=== PATIENT | female | born 1990 | race Caucasian/White ===

== ENCOUNTER → 2018-03-22 | Outpatient (CLI) | payer SELFPAY ==
[2018-03-22 21:26] LABS: APPEARANCE,URINE CLOUDY; BILIRUBIN,URINE NEGATIVE (NEGATIVE); COLOR,URINE YELLOW; GLUCOSE, URINE NEGATIVE (NEGATIVE); KETONES,URINE NEGATIVE (NEGATIVE); LEUKOCYTE ESTERASE,URINE SMALL (NEGATIVE); NITRITE,URINE NEGATIVE (NEGATIVE); PROTEIN,URINE NEGATIVE (NEGATIVE)
[2018-03-22 21:39] LABS: URINE AMPHETAMINES SCREEN NEGATIVE; URINE BARBITURATES SCREEN NEGATIVE; URINE BENZODIAZEPINES SCREEN NEGATIVE; URINE COCAINE SCREEN NEGATIVE; URINE MARIJUANA (THC) SCREEN NEGATIVE; URINE METHADONE SCREEN NEGATIVE; URINE PHENCYCLIDINE SCREEN NEGATIVE
[2018-03-22 22:12] LABS: ABSOLUTE BASOPHILS # (AUTO) 0.1 10^3/uL (0.0-0.2); ABSOLUTE EOSINOPHILS # (AUTO) 0.2 10^3/uL (0.0-0.6); ABSOLUTE LYMPHOCYTES (AUTO) 2.1 10^3/uL (0.5-4.7); ABSOLUTE MONOCYTES (AUTO) 0.7 10^3/uL (0.1-1.4); ABSOLUTE NEUT (AUTO) 6.9 10^3/uL (1.7-8.2); BASOPHILS % (AUTO) 0.6 % (0-2); EOSINOPHILS % (AUTO) 1.5 % (0-6); HEMATOCRIT 33.6 % (36.0-47.0); HEMOGLOBIN 11.4 g/dL (12.0-15.5); MEAN CORPUSCULAR HEMOGLOBIN 28.1 pg (27.0-33.4); MEAN CORPUSCULAR HGB CONC 33.8 g/dL (32.0-36.0); MEAN CORPUSCULAR VOLUME 83 fl (80-97); MONOCYTES % (AUTO) 6.8 % (3-13); PLATELET COUNT 287 10^3/uL (150-450); RED BLOOD COUNT 4.05 10^6/uL (3.72-5.28); RED CELL DISTRIBUTION WIDTH 13.1 % (11.5-14.0); SEGMENTED NEUTROPHILS % (AUTO) 70.1 % (42-78); TOTAL CELLS COUNTED % (AUTO) 100 %; WHITE BLOOD COUNT 9.9 10^3/uL (4.0-10.5)
--- NOTE | 2018-03-22 22:56 | RADIOLOGY REPORT (SQ) ---
ULTRASOUND OF THE PELVIS: OB Ultrasound Greater than 14 weeks CLINICAL HISTORY: 27-year-old female with abdominal pain who is with unknown dates. COMPARISON: None. TECHNIQUE: Multiple sonographic images are performed of the pelvis using grayscale and color Doppler with transabdominal probe.. FINDINGS: heart rate: heart rate equals 135 bpm. stomach is visualized. Kidneys are not well-visualized. The portions of the spine included in the field of view appear within normal although dilation is limited due to motion artifact and lie. Abdominal circumference equals 24.0 cm, 28 weeks three days. Femur length equals 5.6 cm, 29 weeks four days. Head circumference equals 27.4 cm, 30 weeks zero days. Three-vessel cord is demonstrated. The first amniotic fluid index equal 3.1 cm. The second amniotic fluid index 3.1 cm The third amniotic fluid index was 2.3 cm. The fourth amniotic fluid index equals 2.2 cm. Total amniotic fluid index equals 10.7 cm. The placenta is seen in an anterior location. IMPRESSION: 1. Viable intrauterine with estimated gestational age of 29 weeks six days. 2. Estimated date of delivery is 06/01/2018 by ultrasound. 3. Amniotic fluid index equal to 10.7 cm.
[2018-03-22 23:12] LABS: RUBELLA INTERPRETATION POSITIVE
[2018-03-23 00:54] LABS: CHLAM PCR NOT DETECTED (NOT DETECT); GON PCR NOT DETECTED (NOT DETECT)
[2018-03-24 11:40] LABS: HEPATITIS C VIRUS AB <0.1 s/co ratio (0.0-0.9)
[2018-03-24 13:56] LABS: HEPATITS B SURFACE ANTIGEN Negative (Negative)
== END ==
LOC: LC 20:39
PROVIDERS: ATTEND Student in an Organized Health Care Education/Training Program
PROC: 4A1HXCZ Monitoring of Products of Conception, Cardiac Rate, External Approach (ICD-10-PCS; principal; 2018-03-22)
DX: O99.613 Diseases of the digestive system complicating pregnancy, third trimester (principal); K21.9 Gastro-esophageal reflux disease without esophagitis; O09.33 Supervision of pregnancy with insufficient antenatal care, third trimester; O26.893 Other specified pregnancy related conditions, third trimester; R10.9 Unspecified abdominal pain; Z3A.29 29 weeks gestation of pregnancy
CPT/HCPCS: 36415; 76805; 80307; 81001; 84443; 85025; 86592; 86701; 86762; 86803; 86804; 86850; 86900; 86901; 87086; 87340; 87491; 87591; 93976

== ENCOUNTER 2018-06-06 23:18 | Inpatient (IN) | payer MEDICAID ==
[2018-06-07 00:17] LABS: APPEARANCE,URINE SLIGHTLY-CLOUDY; BILIRUBIN,URINE NEGATIVE (NEGATIVE); COLOR,URINE YELLOW; GLUCOSE, URINE NEGATIVE (NEGATIVE); KETONES,URINE NEGATIVE (NEGATIVE); LEUKOCYTE ESTERASE,URINE LARGE (NEGATIVE); NITRITE,URINE NEGATIVE (NEGATIVE); PROTEIN,URINE NEGATIVE (NEGATIVE); URINE SPECIFIC GRAVITY 1.015; UROBILINOGEN,URINE NEGATIVE mg/dL (<2.0)
[2018-06-07 00:22] LABS: ABSOLUTE EOSINOPHILS # (AUTO) 0.1 10^3/uL (0.0-0.6); ABSOLUTE MONOCYTES (AUTO) 0.9 10^3/uL (0.1-1.4); ABSOLUTE NEUT (AUTO) 9.7 10^3/uL (1.7-8.2); BASOPHILS % (AUTO) 0.4 % (0-2); EOSINOPHILS % (AUTO) 0.8 % (0-6); HEMATOCRIT 34.8 % (36.0-47.0); HEMOGLOBIN 11.7 g/dL (12.0-15.5); LYMPHOCYTES % (AUTO) 15.5 % (13-45); MEAN CORPUSCULAR HEMOGLOBIN 27.2 pg (27.0-33.4); MEAN CORPUSCULAR HGB CONC 33.5 g/dL (32.0-36.0); MEAN CORPUSCULAR VOLUME 81 fl (80-97); PLATELET COUNT 301 10^3/uL (150-450); RED BLOOD COUNT 4.28 10^6/uL (3.72-5.28); RED CELL DISTRIBUTION WIDTH 14.3 % (11.5-14.0); SEGMENTED NEUTROPHILS % (AUTO) 76.3 % (42-78); TOTAL CELLS COUNTED % (AUTO) 100 %; WHITE BLOOD COUNT 12.7 10^3/uL (4.0-10.5)
[2018-06-07] MEDS ORDERED: OXYTOCIN 10 UNIT/ML VIAL ONE (00:24)
[2018-06-07] MEDS ORDERED: MISOPROSTOL 0.2 MG TABLET ONE (00:24)
[2018-06-07] MEDS ORDERED: OXYTOCIN/NORMAL SALINE 20 UNIT/1,000 ML RTUINJ ONE (00:24)
[2018-06-07] MEDS ORDERED: LIDOCAINE 1% INJ-PF (10 MG/ML) 30 ML SDV ONE (00:24)
[2018-06-07] MEDS ORDERED: DINOPROSTONE 10 MG VAGINAL INSERT.SR ONE (00:25)
[2018-06-07 00:35] LABS: URINE AMPHETAMINES SCREEN NEGATIVE; URINE BARBITURATES SCREEN NEGATIVE; URINE BENZODIAZEPINES SCREEN NEGATIVE; URINE COCAINE SCREEN NEGATIVE; URINE MARIJUANA (THC) SCREEN NEGATIVE; URINE METHADONE SCREEN NEGATIVE; URINE PHENCYCLIDINE SCREEN NEGATIVE
[2018-06-07] MEDS ORDERED: ZOLPIDEM TARTRATE 5 MG TABLET ONE (03:14)
[2018-06-07] MEDS ORDERED: ZOLPIDEM TARTRATE 5 MG TABLET PO ONE (03:30)
[2018-06-07] MEDS ORDERED: ACETAMINOPHEN 325 MG TABLET ONE (05:58)
[2018-06-07] MEDS ORDERED: ACETAMINOPHEN 325 MG TABLET PO ONE (06:05)
--- NOTE | 2018-06-07 06:45 | Admission Physical ---
Datetime Report Generated by CPN: 06/07/2018 06:44 CURRENT ADMISSION Chief Complaint: Scheduled Induction of Labor Indication for Induction: Postterm Admit Impression : Postterm, Intrauterine Admit Plan: Initiate Labor Protocol ALLERGIES Medication Allergies: No Medication Allergies: No Known Allergies (06/07/2018) Latex: No Latex Allergies Food Allergies: N/A Environmental Allergies: N/A OBSTETRICAL HISTORY EDC: 06/06/2018 00:00 : 2 Para: 1 Term: 1 : 0 SAB: 0 IAB: 0 Ectopic: 0 Livin Cesareans: 0 VBACs: 0 Multiple Births: 0 Gestational Diabetes: No Rh Sensitization: No Incompetent Cervix: No DREW: No Infertility: No ART Treatment: No Uterine Anomaly: No IUGR: No Hx Previous C/S: No Macrosomia: No Hx Loss/Stillborn: No PIH: No Hx : No Placenta Previa/Abruption: No Depression/PP Depression: No PTL/PROM: No Post Hemorrhage: No Current Procedures: None Obstetrical History Comments: G1- 2015, at 39 weeks, 6lbs 3oz female, epidural G2- current (Annotations: Data stored by N on behalf of user) SEE RECORDS Alcohol: No Marijuana : No Cocaine: No Other Illicit Drugs: No Cigarettes: Never Smoker. 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, gallbladder removal 2014 INFECTIOUS HISTORY Gonorrhea: No Genital Herpes: No Chlamydia: No Tuberculosis: No Syphilis: No Hepatitis: No HIV/AIDS Exposure: No Rash or Viral Illness: No HPV: No PHYSICAL EXAM General: Normal HEENT: Normal Neurologic: Normal Thyroid: Normal Heart: Normal Lungs: Normal Breast: Deferred Back: Normal Abdomen: Normal Genitourinary Exam: Normal Extremities: Normal DTRs: Normal Pelvic Type: Adequate FETUS A EGA: 40.1 PLANS FOR LABOR AND DELIVERY Labor and Delivery: None Pain Management: Epidural Feeding Preference: Formula Benefit of Breast Feed Discussed: Yes Circumcision: No INFORMED CONSENT Signature: with User ID: [email or web address]
[2018-06-07] MEDS ORDERED: PROMETHAZINE HCL 25 MG TABLET PO PRN (06:48)
[2018-06-07] MEDS ORDERED: PROMETHAZINE HCL 25 MG SUPP.RECT PR PRN (06:48)
[2018-06-07] MEDS ORDERED: PROMETHAZINE HCL INJ 25 MG/1 ML VIAL IV PRN (06:48)
[2018-06-07] MEDS ORDERED: OXYTOCIN/NORMAL SALINE 20 UNIT/1,000 ML RTUINJ IV PRN (06:48)
[2018-06-07] MEDS ORDERED: GLYCERIN/WITCH HAZEL LEAF 1 EACH MED..PAD TP PRN (06:48)
[2018-06-07] MEDS ORDERED: DIPHENHYDRAMINE HCL 25 MG CAPSULE PO PRN (06:48)
[2018-06-07] MEDS ORDERED: PSEUDOEPHEDRINE HCL 30 MG TABLET PO PRN (06:48)
[2018-06-07] MEDS ORDERED: DIPH/PERTUSS(ACELL)/TETANUS VAC/PF 0.5 ML SYR (>=10YO) IM PRN (06:48)
[2018-06-07] MEDS ORDERED: ZOLPIDEM TARTRATE 5 MG TABLET PO PRN (06:48)
[2018-06-07] MEDS ORDERED: ACETAMINOPHEN WITH CODEINE #3 TABLET PO PRN (06:48)
[2018-06-07] MEDS ORDERED: MEASLES,MUMPS&RUBELLA VACC/PF 0.5 ML VIAL SUBCUT PRN (06:48)
[2018-06-07] MEDS ORDERED: BENZOCAINE/MENTHOL AEROSOL SPRAY 56 ML TOP PRN (06:48)
[2018-06-07] MEDS ORDERED: ACETAMINOPHEN 650 MG SUPP.RECT PR PRN (06:48)
[2018-06-07] MEDS ORDERED: NA PHOS,M-B/NA PHOS,DI-BA (ADULT) 133 ML ENEMA PR PRN (06:48)
[2018-06-07] MEDS ORDERED: MAGNESIUM HYDROXIDE SUSP 30 ML UDCUP PO PRN (06:48)
[2018-06-07] MEDS ORDERED: DIBUCAINE 1% OINTMENT 28 GM TP PRN (06:48)
--- NOTE | 2018-06-07 06:48 | PDOC DELIVERY SUMMARY ---
Delivery Summary - Maternal Ruptured Membranes: AROM Fluids: Clear - Delivery Labor: Induction Presentation: Vertex Uterine Contraction Monitoring: External Support Person Present: No Placenta: Within Normal Limits Nuchal Cord: No - Medications Type of Anesthesia:: Other
[2018-06-07] MEDS: DOCUSATE SODIUM 100 MG CAPSULE PO SCH ×2 (11:46→17:13)
[2018-06-07] MEDS: FERROUS SULFATE 325 MG TABLET PO SCH ×2 (11:46→17:12)
[2018-06-07] MEDS: FAMOTIDINE 20 MG TABLET PO SCH ×2 (11:47→22:11)
[2018-06-07] MEDS: PRENATAL VITAMIN W DHA CAPSULE PO SCH (11:47)
[2018-06-07] MEDS: SENNOSIDES/DOCUSATE 8.6-50 MG 1 EACH TABLET PO SCH (11:47)
[2018-06-07] MEDS: IBUPROFEN 800 MG TABLET PO SCH ×2 (13:32→22:10)
[2018-06-08] MEDS: IBUPROFEN 800 MG TABLET PO SCH ×3 (06:12→21:33)
[2018-06-08 07:44] LABS: HEMATOCRIT 34.4 % (36.0-47.0); HEMOGLOBIN 11.6 g/dL (12.0-15.5); MEAN CORPUSCULAR HEMOGLOBIN 27.8 pg (27.0-33.4); MEAN CORPUSCULAR HGB CONC 33.8 g/dL (32.0-36.0); MEAN CORPUSCULAR VOLUME 82 fl (80-97); PLATELET COUNT 292 10^3/uL (150-450); RED BLOOD COUNT 4.18 10^6/uL (3.72-5.28); RED CELL DISTRIBUTION WIDTH 14.2 % (11.5-14.0); WHITE BLOOD COUNT 10.4 10^3/uL (4.0-10.5)
--- NOTE | 2018-06-08 08:34 | Delivery Summary ---
Del Sum A-C Datetime Report Generated by CPN: 06/08/2018 08:34 DELIVERY PERSONNEL DELIVERY PERSONNEL: [id number] Delivery Doctor:: Elliot Charles MD Labor and Delivery Nurse:: Sarah Pradhan RNchange manager Nurse:: Irma Borjas RN Nursery Nurse:: Deedee Shaw RN MATERNAL INFORMATION Delivery Anesthesia: None Medications After Delivery: Pitocin Bolus-Please Comment Meds After Delivery Comment: 20 units pitocin after placenta delivery Maternal Complications: Precipitous Labor (<3hrs) LABOR SUMMARY EDC: 06/06/2018 00:00 No. Babies in Womb: 1 Attempted: No Labor Anesthesia: None LABOR INFORMATION Reason for Induction: Post Dates Onset of Labor: 06/07/2018 06:00 Complete Dilatation: 06/07/2018 06:18 Cervical Ripening Agents: Cervidil Oxytocin: N/A Group B Beta Strep: Negative Antibiotics # of Doses: 0 Antibiotics Time of Last Dose: n/a Name of Antibiotic Given: n/a Steroids Given: None Reason Steroids Not Administered: Not Applicable Other Reason Not Administered: n/a MEMBRANES Membranes Rupture Method: Artificial Membranes Rupture Method: Artificial Rupture of Membranes: 06/07/2018 06:35 Length of Rupture (hr): 0.03 Amniotic Fluid Color: Clear Amniotic Fluid Color: Clear Amniotic Fluid Amount: Small Amniotic Fluid Amount: Small Amniotic Fluid Odor: Normal STAGES OF LABOR Stage 1 hr: 0 Stage 1 min: 18 Stage 2 hr: 0 Stage 2 min: 19 Stage 3 hr: 0 Stage 3 min: 4 Total Time in Labor hr: 0 Total Time in Labor min: 41 VAGINAL DELIVERY Episiotomy: None Laceration #1: None Laceration Extension #1: N/A Laceration Repair: Not Applicable Sponge Count Correct: N/A Sharps Count Correct: N/A CSECTION DELIVERY Primary Indication: N/A Secondary Indication: N/A CSection Urgency: n/a CSection Incidence: n/a Labor: n/a Elective: n/a BABY A INFORMATION Delivery Date/Time: 06/07/2018 06:37 Method of Delivery: Vaginal Method of Delivery: Vaginal Born in Route : No : N/A Forceps: N/A Vacuum Extraction: N/A Shoulder Dystocia : No PRESENTATION/POSITION BABY A Presentation: Cephalic Cephalic Presentation: Vertex Vertex Position: Left Occipital Anterior Breech Presentation: N/A PLACENTA INFORMATION BABY A Placenta Delivery Time : 06/07/2018 06:41 Placenta Method of Delivery: Spontaneous Placenta Method of Delivery: Spontaneous Placenta Status: Delivered SCORES BABY A Heart Rate 1 min: >100 bpm Resp Effort 1 min: Slow, Irregular Reflex Irritability 1 min: Cough or Sneeze or Pulls Away Muscle Tone 1 min: Active Motion Color 1 min: Blue/Pale Resuscitation Effort 1 min: Tactile Stimulation SCORE 1 MIN: 7 Heart Rate 5 min: >100 bpm Resp Effort 5 min: Good Cry Reflex Irritability 5 min: Cough or Sneeze or Pulls Away Muscle Tone 5 min: Active Motion Color 5 min: Blue/Pale Resuscitation Effort 5 min: Tactile Stimulation SCORE 5 MIN: 8 INFORMATION BABY A Gestational Age at Delivery: 40.1 Gestational Status: Full Term- 39- 40.6 Weeks Outcome : Liveborn Infant Condition : Stable Infant Sex: Male Sex: Male IDENTIFICATION BABY A Infant Verification Date/Time: 06/07/2018 06:37 ID Band Number: [id number] Mother's Name Verified: Yes Infant RN Verifying Infant: [email or web address] alexanderley rn, n. pradhan rn WEIGHT/LENGTH BABY A Infant Birthweight (gm): 3650 Weight (lb): 8 Weight (oz): 1 Length (in): 20.50 Length (cm): 52.07 CORD INFORMATION BABY A No. Cord Vessels: 3 Nuchal Cord : Around Neck x1, Loose Cord Blood Taken: Yes-For Storage (Mom's Blood type +) Suction: Mouth ASSESSMENT BABY A Infant Complications: None Physical Findings at Delivery: Within Normal Limits; Other Physical Findings- Other: see nursery notes Infant Respirations: Appears Normal Skin to Skin: Yes Skin to Skin Time (min): 90 Car Worker/ALS Called : No Care By: Nubia Shaw RN Transferred To: Remains with Mother BABY B INFORMATION : N/A SIGNATURES Signature: with User ID: [email or web address]
--- NOTE | 2018-06-08 09:10 | PDOC PROGRESS REPORT ---
Subjective-OB Progress Note for:: 06/08/18 Subjective: pt doing well no complaints Physical Exam (OB) Vital Signs: Temp Pulse Resp BP Pulse Ox 99.0 F 67 15 117/64 100 06/08/18 08:00 06/08/18 07:46 06/08/18 07:46 06/08/18 07:46 06/08/18 07:46 Intake & Output 06/07/18 06/08/18 06/09/18 06:59 06:59 06:59 Intake Total 240 Balance 240 Weight 126.1 kg - General General Appearance: Alert - PIH/Pre-Eclampsia Clonus: Negative Headache: Absent Epigastric Pain: No Visual Changes: No - Lochia Lochia Amount: Small 10-25 ml Lochia Color: Rubra/Red - Abdomen Description: Soft, Round Hernia Present: No Bowel Sounds: Normoactive Flatus Presence: Present Fundal Description: Firm Fundal Height: u/u - u/2 - Extremities Calf: Normal Objective-Diagnostic Laboratory: 06/08/18 07:20 06/08/18 07:20 WBC 10.4 RBC 4.18 Hgb 11.6 L Hct 34.4 L MCV 82 MCH 27.8 MCHC 33.8 RDW 14.2 H Plt Count 292 Assessment and Plan(PN) - Assessment and Plan (1) Vaginal delivery Is this a current diagnosis for this admission?: Yes - Time Spent with Patient Time with patient: Less than 15 minutes - Disposition Anticipated Discharge: Home Within: within 24 hours
[2018-06-08] MEDS: FERROUS SULFATE 325 MG TABLET PO SCH ×2 (09:35→17:22)
[2018-06-08] MEDS: DOCUSATE SODIUM 100 MG CAPSULE PO SCH ×2 (09:36→17:22)
[2018-06-08] MEDS: FAMOTIDINE 20 MG TABLET PO SCH ×2 (09:36→22:13)
[2018-06-08] MEDS: PRENATAL VITAMIN W DHA CAPSULE PO SCH (09:36)
[2018-06-08] MEDS: SENNOSIDES/DOCUSATE 8.6-50 MG 1 EACH TABLET PO SCH (09:36)
[2018-06-08 19:57] VITALS: BP 123/62
[2018-06-09] MEDS: IBUPROFEN 800 MG TABLET PO SCH ×2 (06:21→14:00)
[2018-06-09] MEDS: DOCUSATE SODIUM 100 MG CAPSULE PO SCH ×2 (09:20→17:22)
[2018-06-09] MEDS: SENNOSIDES/DOCUSATE 8.6-50 MG 1 EACH TABLET PO SCH (09:20)
[2018-06-09] MEDS: FAMOTIDINE 20 MG TABLET PO SCH (09:20)
[2018-06-09] MEDS: FERROUS SULFATE 325 MG TABLET PO SCH ×2 (09:20→17:22)
[2018-06-09] MEDS: PRENATAL VITAMIN W DHA CAPSULE PO SCH (09:20)
--- NOTE | 2018-06-09 09:26 | PDOC PROGRESS REPORT ---
Subjective-OB Progress Note for:: 06/09/18 Subjective: Asleep on rounds, no c/o, ready to go home, bottle feeding, voiding, eating well Physical Exam (OB) Vital Signs: Temp Pulse Resp BP Pulse Ox 98.0 F 83 18 123/62 99 06/08/18 19:50 06/08/18 19:50 06/08/18 19:50 06/08/18 19:50 06/08/18 19:50 Intake & Output 06/08/18 06/09/18 06/10/18 06:59 06:59 06:59 Intake Total 240 Balance 240 - PIH/Pre-Eclampsia Clonus: Negative Headache: Absent Epigastric Pain: No Visual Changes: No - Lochia Lochia Amount: Scant < 10 ml Lochia Color: Rubra/Red - Abdomen Description: Soft, Round Hernia Present: No Fundal Description: Firm, Midline Fundal Height: u/u - u/2 Objective-Diagnostic Laboratory: 06/08/18 07:20 Assessment and Plan(PN) - Assessment and Plan (1) Depression Qualifiers: Depression Type: unspecified Qualified Code(s): F32.9 - Major depressive disorder, single episode, unspecified Is this a current diagnosis for this admission?: Yes (2) Late care Is this a current diagnosis for this admission?: Yes (3) Vaginal delivery Is this a current diagnosis for this admission?: Yes - Time Spent with Patient Time with patient: Less than 15 minutes Medications reviewed and adjusted accordingly: Yes - Disposition Anticipated Discharge: Home Within: Other - home today
--- NOTE | 2018-06-09 09:29 | PDOC DISCHARGE SUMMARY ---
Final Diagnosis Discharge Date: 06/09/18 - Final Diagnosis (1) Depression Is this a current diagnosis for this admission?: Yes (2) Late care Is this a current diagnosis for this admission?: Yes (3) Vaginal delivery Is this a current diagnosis for this admission?: Yes Discharge Data - Discharge Medication Home Medications: Escitalopram Oxalate [Lexapro] 1 tab PO DAILY 06/07/18 Pnv 102/Iron/Folate 1/Dss/Dha [Vitafol Fe+ Docusate Combo Pck] 1 cap PO DAILY Gestational Age: 40.6 Reason(s) for Admission: Onset of Labor Procedures: NST, Ultrasound Intrapartum Procedure(s): Spontaneous Vaginal Delivery - Diagnosis Test Laboratory: Temp Pulse Resp BP Pulse Ox 98.0 F 83 18 123/62 99 06/08/18 19:50 06/08/18 19:50 06/08/18 19:50 06/08/18 19:50 06/08/18 19:50 06/06/18 06/06/18 06/08/18 23:32 23:45 07:20 RBC 4.28 4.18 Hgb 11.7 L 11.6 L Hct 34.8 L 34.4 L Urine Opiates Screen NEGATIVE - Discharge information/Instructions Discharge Activity: Activity As Tolerated, No Lifting Over 10 Pounds, No Lifting /Push/Pulling, Pelvic Rest Discharge Diet: As Tolerated, Regular Disposition: HOME, SELF-CARE Follow up with: [facility] in: 3, Weeks
== END 2018-06-09 17:55 | disposition home or self-care (01) | DRG 775 ==
LOC: LR 23:18 → 2S 06-07 08:49
PROVIDERS: ADMIT Obstetrics & Gynecology Gynecology; ATTEND Obstetrics & Gynecology Gynecology
PROC: 10E0XZZ Delivery of Products of Conception, External Approach (ICD-10-PCS; principal; 2018-06-07)
PROC: 3E033VJ Introduction of Other Hormone into Peripheral Vein, Percutaneous Approach (ICD-10-PCS; 2018-06-07)
PROC: 10907ZC Drainage of Amniotic Fluid, Therapeutic from Products of Conception, Via Natural or Artificial Opening (ICD-10-PCS; 2018-06-07)
DX: O69.81X0 Labor and delivery complicated by cord around neck, without compression, not applicable or unspecified (principal); O99.344 Other mental disorders complicating childbirth; F32.9 Major depressive disorder, single episode, unspecified; Z37.0 Single live birth; Z3A.40 40 weeks gestation of pregnancy
CPT/HCPCS: 36415; 80307; 81005; 85025; 85027; 86592; 86850; 86900; 86901; J2590; J3490